=== PATIENT | male | born 1955 | race African-American/Black ===

== ENCOUNTER 2019-05-20 13:24 | Emergency (ER) | payer OTHER ==
[2019-05-20 13:31] VITALS: BP 124/79; PULSE 75; TEMP 98; BMI 29.1
[2019-05-20] MEDS ORDERED: IBUPROFEN 600 MG TABLET (FP) PO ONE ×2 (14:17→14:23)
[2019-05-20] MEDS ORDERED: PSEUDOEPHEDRINE HCL 30 MG TABLET PO ONE (14:22)
--- NOTE | 2019-05-20 14:22 | PDOC ---
History of Present Illness - General Chief Complaint: Cold Symptoms Stated Complaint: COLD SYMPTOMS Time Seen by Provider: 05/20/19 13:40 History Source: Patient Exam Limitations: No Limitations Past History - Travel Traveled outside of the country in the last 30 days: No Close contact w/someone who was outside of country & ill: No - Past Medical History Allergies/Adverse Reactions: Allergies Allergy/AdvReac Type Severity Reaction Status Date / Time Penicillins Allergy Verified 05/20/19 13:31 Home Medications: Ambulatory Orders Fluticasone Prop 0.05% Nasal [Flonase -] 1 - 2 spray NS DAILY #1 spray.pump 08/29 Pseudoephedrine HCl [Sudafed] 30 mg PO Q8H #30 tablet 05/20/19 COPD: No - Suicide/Smoking/Psychosocial Hx Smoking History: Unknown if ever smoked Have you smoked in the past 12 months: No Information on smoking cessation initiated: No Hx Alcohol Use: No Drug/Substance Use Hx: No Review of Systems - Review of Systems Able to Perform ROS?: Yes Comments:: 05/20/19 14:22 CONSTITUTIONAL: Absent: Fever, chills, body aches diaphoresis, generalized weakness, malaise, loss of appetite HEENT: Present: rhinorrhea, nasal congestion Absent: throat pain, difficulty swallowing , mouth swelling, ear pain, eye pain, visual Changes CARDIOVASCULAR: Absent: chest pain, loss of consciousness, palpitations, irregular heart rate, peripheral edema RESPIRATORY: Present: Cough Absent: shortness of breath, dyspnea with exertion, orthopnea, wheezing, stridor, hemoptysis GASTROINTESTINAL: Absent: abdominal pain, abdominal distension, nausea, vomiting, diarrhea, constipation, melena, hematochezia SKIN: Absent: rash, itching, pallor NEUROLOGIC: Present: headache Absent: focal weakness or paresthesias, dizziness, unsteady gait, seizure, mental status changes, bladder or bowel incontinence Is the patient limited Portuguese proficient: No *Physical Exam - Vital Signs Last Vital Signs Temp Pulse Resp BP Pulse Ox 98.0 F 75 16 124/79 100 05/20/19 13:29 05/20/19 13:29 05/20/19 13:29 05/20/19 13:29 05/20/19 13:29 - Physical Exam Comments: 05/20/19 14:23 GENERAL: Well developed, well nourished. Awake and alert. No acute distress. HEENT: Normocephalic, atraumatic. PERRLA, EOMI. No conjunctival pallor. Sclera are non- icteric. Moist mucous membranes. Oropharynx is clear. Injected nares b/l. NECK: Supple. Full ROM. No JVD. Carotid pulses 2+ and symmetric, without bruits. No thyromegaly. No lymphadenopathy. CARDIOVASCULAR: Regular rate and rhythm. No murmurs, rubs, or gallops. Distal pulses are 2+ and symmetric. PULMONARY: No evidence of respiratory distress. Lungs clear to auscultation bilaterally. No wheezing, rales or rhonchi. ABDOMINAL: Soft. Non-tender. Non-distended. No rebound or guarding. No organomegaly. Normoactive bowel sounds. MUSCULOSKELETAL Normal range of motion at all joints. No bony deformities or tenderness. No CVA tenderness. EXTREMITIES: No cyanosis. No clubbing. No edema. No calf tenderness. SKIN: Warm and dry. Normal capillary refill. No rashes. No jaundice. NEUROLOGICAL: Alert, awake, appropriate. Cranial nerves 2-12 intact. No deficits to light touch and temperature in face, upper extremities and lower extremities. No motor deficits in the in face, upper extremities and lower extremities. Normoreflexic in the upper and lower extremities. Normal speech. Toes are down- going bilaterally. Gait is normal without ataxia. PSYCHIATRIC: Cooperative. Good eye contact. Appropriate mood and affect. Medical Decision Making - Medical Decision Making 05/20/19 14:27 the patient is a 64-year-old male who presented to the ER with 3 days of cold- like symptoms. He states that he has a dry cough and congestion which keep him up at night. He has tried taking Advil and NyQuil with minimal relief of the symptoms. Denies fevers, sore throat, earache, chills, nausea, vomiting and diarrhea. A/P: Upper respiratory infection On exam patient with injected nares bilaterally, supports patient's congestion Exam is otherwise unremarkable. Most likely an upper respiratory illness We will discharge home with some dramatic relief such as Sudafed and Advil I discussed the physical exam findings, ancillary test results and final diagnoses with the patient. I answered all of the patient's questions. The patient was satisfied with the care received and felt comfortable with the discharge plan and treatment plan. The Patient agrees to follow up with the primary care physician/specialist within 24-72 hours. Return precautions were given. *DC/Admit/Observation/Transfer Diagnosis at time of Disposition: Upper respiratory disease - Discharge Dispostion Disposition: HOME Condition at time of disposition: Stable Decision to Admit order: No - Referrals Referrals: Sy Khan MD [Staff Physician] - - Patient Instructions Printed Discharge Instructions: DI for Viral Upper Respiratory Infection -- Adult Additional Instructions: You have an upper respiratory infection, or the common cold. Take the Naproxen as directed on the bottle You may take the Sudafed every 8 hours as directed. Use the Flonase twice a day 1 spray in each nare to help with her congestion. Drink plenty of fluids. Cough drops and warm tea may help your symptoms as well. Please follow up with her primary care doctor this week. Return to the emergency department if you have difficulty breathing, shortness of breath, worsening pain, nausea, vomiting or if you have any changes in your symptoms - Post Discharge Activity Forms/Work/School Notes: Back to Work
[2019-05-20] MEDS ORDERED: PSEUDOEPHEDRINE HCL 60 MG TABLET ONE (14:24)
== END 2019-05-20 14:58 | disposition home or self-care (01) ==
LOC: EDBD → JERFT 13:24
DX: J06.9 Acute upper respiratory infection, unspecified (principal)
CPT/HCPCS: 99281-25

== ENCOUNTER 2019-08-13 14:41 | Emergency (ER) | payer OTHER ==
[2019-08-13 14:47] VITALS: BP 139/88; PULSE 82; TEMP 98.4; BMI 60.7
--- NOTE | 2019-08-13 14:49 | PDOC ---
Rapid Medical Evaluation Chief Complaint: Pain Time Seen by Provider: 08/13/19 14:43 Medical Evaluation: Allergies Allergy/AdvReac Type Severity Reaction Status Date / Time Penicillins Allergy Verified 05/20/19 13:31 08/13/19 14:44 I have performed a brief in-person evaluation of this patient. The patient presents with a chief complaint of: right ankle pain , atraumic Pertinent physical exam findings: tender soft mass to distal medial right ankle. No swelling to ext or erythema I have ordered the following: xray right ankle The patient will proceed to the ED for further evaluation. 08/13/19 14:48 Discharge Disposition - Diagnosis Ankle pain Qualifiers: Chronicity: acute Laterality: right Qualified Code(s): M25.571 - Pain in right ankle and joints of right foot - Discharge Dispostion Condition at time of disposition: Stable - Referrals - Patient Instructions - Post Discharge Activity
[2019-08-13] MEDS ORDERED: IBUPROFEN 600 MG TABLET (FP) PO ONE ×2 (15:22→15:23)
--- NOTE | 2019-08-13 15:27 | PDOC ---
History of Present Illness - General Chief Complaint: Pain, Acute Stated Complaint: RT LEG PAIN Time Seen by Provider: 08/13/19 14:43 History Source: Patient Exam Limitations: No Limitations - History of Present Illness Initial Comments: 08/13/19 16:01 Chief complaint: Ankle pain Patient 64-year-old male with no significant medical problems who states he developed right inner ankle pain 2 days ago. No fever, no injury. Patient is ambulatory. GENERAL/CONSTITUTIONAL: No fever, weakness. dizziness HEAD, EYES, EARS, NOSE AND THROAT: No change in vision. No ear pain or discharge. No sore throat. CARDIOVASCULAR: No chest pain RESPIRATORY: No shortness of breath or cough GASTROINTESTINAL: No pain, nausea, vomiting, diarrhea or constipation GENITOURINARY: No dysuria MUSCULOSKELETAL: No neck or back pain SKIN: No rash, + lump NEUROLOGIC: No headache, vertigo, loss of consciousness, or loss of sensation. GENERAL: The patient is awake, alert, and fully oriented, in no acute distress. HEAD: Normal with no signs of trauma. EYES: Pupils equal, round and reactive to light, sclera anicteric, conjunctiva clear. ENT: pharynx: no erythema, no exudate, uvula midline NECK: supple CHEST: clear, nontender, rr ABD: soft, nontender BACK: no tenderness or signs of injury EXTREMITIES: Right lower extremity with small palpable tender area above the medial malleolus, consistent with varicose vein, no redness or signs of thrombophlebitis or infection. Full range of motion, neurovascular intact. No calf tenderness or swelling. Rest of extremities, normal range of motion, no edema. NEUROLOGICAL: Normal speech, normal gait. SKIN: Warm, Dry Past History - Past Medical History Allergies/Adverse Reactions: Allergies Allergy/AdvReac Type Severity Reaction Status Date / Time Penicillins Allergy Verified 05/20/19 13:31 Home Medications: Ambulatory Orders Fluticasone Prop 0.05% Nasal [Flonase -] 1 - 2 spray NS DAILY #1 spray.pump 08/29 Pseudoephedrine HCl [Sudafed] 30 mg PO Q8H #30 tablet 05/20/19 COPD: No - Immunization History Immunization Up to Date: No - Psycho Social/Smoking Cessation Hx Smoking History: Never smoked Have you smoked in the past 12 months: No Information on smoking cessation initiated: No Hx Alcohol Use: No Drug/Substance Use Hx: No *Physical Exam - Vital Signs Last Vital Signs Temp Pulse Resp BP Pulse Ox 98.4 F 82 16 139/88 96 08/13/19 14:44 08/13/19 14:44 08/13/19 14:44 08/13/19 14:44 08/13/19 14:44 ED Treatment Course - Medications Given in the ED: ED Medications Discontinued Medications Generic Name Dose Route Start Last Admin Trade Name Meryl PRN Reason Stop Dose Admin Ibuprofen 600 mg 08/13/19 15:23 08/13/19 15:25 Motrin - PO 08/13/19 15:24 600 mg ONCE ONE Administration Medical Decision Making - Medical Decision Making 08/13/19 16:04 64-year-old healthy male with 2 days of right medial ankle pain and tenderness, with palpable area consistent with varicose vein. No signs of infection, no calf tenderness. No indication for ultrasound. Patient had x-ray ordered from triage. X-ray does not show any acute issue Discussed issues, findings, results, applicable medications and treatments and follow-up. All these were understood and all questions were answered Discharge - Discharge Information Problems reviewed: Yes Clinical Impression/Diagnosis: Ankle pain Qualifiers: Chronicity: acute Laterality: right Qualified Code(s): M25.571 - Pain in right ankle and joints of right foot Condition: Stable Disposition: HOME - Admission No - Additional Discharge Information Prescription Drug Monitoring Program (I-STOP) results: I-STOP not reviewed - Follow up/Referral Referrals: Stanley Griffith MD [Primary Care Provider] - Alfonso Montalvo DO [Staff Physician] - - Patient Discharge Instructions Patient Printed Discharge Instructions: Varicose Veins Additional Instructions: Wear compression stockings, take Motrin 600 mg every 6 hours for pain if needed. Return to the ER if redness, fever, worsening swelling or other concerns. Follow-up with the vascular surgeon - Post Discharge Activity
== END 2019-08-13 15:30 | disposition home or self-care (01) ==
LOC: JERFT 14:41
DX: M25.571 Pain in right ankle and joints of right foot (principal); I83.91 Asymptomatic varicose veins of right lower extremity
CPT/HCPCS: 73610-TC-RT-FY; 99282-25

== ENCOUNTER 2019-09-14 12:12 | Emergency (ER) | payer OTHER ==
[2019-09-14 12:29] VITALS: TEMP 98.2; BMI 27.1
--- NOTE | 2019-09-14 12:44 | PDOC ---
History of Present Illness - General Chief Complaint: Hemoptysis Stated Complaint: SPITTING UP BLOOD Time Seen by Provider: 09/14/19 12:43 - History of Present Illness Initial Comments: 09/14/19 13:12 Pt is a 64 y/o M w/ no significant past medical history who presents to our Emergency Department due to cough. Pt endorses that he began to experience a soar throat this past . On Saturday, pt noticed his cough was productive of blood tinged sputum. Pt endorses he has felt rather weak and has had decreased energy as well. He has not received the flu vaccine. Denies fever or night sweats. Denies any TB exposure or smoking history. He has used Excedrin during this time period as he has also had a headache. Excedrin has provided some relief of his headache. PMh Denies Social Hs- Denies alcohol or tovacco use. SurgHx- b/l knee arthroscopy FH- Father NC, Mother NC. Sisters DM and HTN Allergies-Penicillin Past History - Past Medical History Allergies/Adverse Reactions: Allergies Allergy/AdvReac Type Severity Reaction Status Date / Time Penicillins Allergy Verified 09/14/19 12:26 Home Medications: Ambulatory Orders Fluticasone Prop 0.05% Nasal [Flonase -] 1 - 2 spray NS DAILY #1 spray.pump 08/29 Pseudoephedrine HCl [Sudafed] 30 mg PO Q8H #30 tablet 05/20/19 Azithromycin 500 mg PO DAILY 5 Days #6 tablet 09/14/19 COPD: No - Immunization History Immunization Up to Date: No - Psycho Social/Smoking Cessation Hx Smoking History: Never smoked Have you smoked in the past 12 months: No Hx Alcohol Use: No Drug/Substance Use Hx: No Review of Systems - Review of Systems Constitutional: Yes: Malaise, Weakness. No: Chills, Fever, Night Sweats HEENTM: Yes: Nose Congestion, Throat Pain. No: Throat Swelling Respiratory: Yes: Cough, Productive cough. No: Shortness of Breath, Wheezing Cardiac (ROS): No: Chest Pain, Irregular Heart Rate, Palpitations ABD/GI: No: Constipated, Diarrhea Neurological: Yes: Headache. No: Numbness, Paresthesia *Physical Exam - Vital Signs Last Vital Signs Temp Pulse Resp BP Pulse Ox 98.2 F 83 18 132/86 99 09/14/19 12:26 09/14/19 12:26 09/14/19 12:26 09/14/19 12:26 09/14/19 12:26 - Physical Exam General Appearance: Yes: Appropriately Dressed. No: Apparent Distress HEENT: positive: Normal ENT Inspection, TMs Normal, Pharynx Normal, Muffled/ Hoarse voice, Nasal Congestion. negative: Pale Conjunctivae, Photophobia, Scleral Icterus (R), Scleral Icterus (L), Pharyngeal Erythema, Tonsillar Exudate , Tonsillar Erythema, TM Bulging, TM Dull, TM Erythema, Lesions, Arriaga, Excessive drooling, Thrush Neck: negative: Lymphadenopathy (R), Lymphadenopathy (L), Tender lateral, Tender midline Respiratory/Chest: positive: Lungs Clear, Normal Breath Sounds. negative: Respiratory Distress, Accessory Muscle Use, Decreased Breath Sounds, Crackles, Rales, Rhonchi, Stridor, Wheezing, Plerual Rub Cardiovascular: positive: Regular Rate, S1, S2 Gastrointestinal/Abdominal: negative: Distended, Guarding, Rebound, Tenderness Extremity: positive: Normal Inspection. negative: Pedal Edema, Swelling Integumentary: positive: Normal Color Neurologic: positive: bar pilot II-XII NML intact, Fully Oriented ED Treatment Course - LABORATORY CBC & Chemistry Diagram: 09/14/19 13:23 09/14/19 13:23 Medical Decision Making - Medical Decision Making Pt is a 64 y/o M w/ no significant past medical history who presents to our Emergency Department due to cough. Pt endorses that he began to experience a soar throat this past . On Saturday, pt noticed his cough was productive of blood tinged sputum. Pt endorses he has felt rather weak and has had decreased energy as well. He has not received the flu vaccine. Denies fever or night sweats. Denies any TB exposure or smoking history. He has used Excedrin during this time period as he has also had a headache. Excedrin has provided some relief of his headache. 09/14/19 13:11 DDx includes but not limited to URI, Pneumonia, Bronchitis, TB Will order CXR, CMP, CBC w/ diff, Tylenol, and Robitussin l 09/14/19 14:39 CXR No acute pathology, CPA clear no infiltrates or congestive changes. 09/14/19 15:14 Cr 1.6. Pt states he regularly visits a Sales [employer]- Dr Lee. Will call office now to ascertain what his baseline creatinine is. No elevated WBC on CBC. 09/14/19 15:24 Spoke with Sales Marketing, Dr Lee. Endorses that patient's last Creatinine was 1.4 in January of this year. Pt has an appointment in September to see director of recruitment. Pt currently receiving second liter of normal saline. Once NS finished, will dc patient with z-los for productive cough and give pcp and nephrology referral . Discharge - Discharge Information Problems reviewed: Yes Clinical Impression/Diagnosis: Upper respiratory disease Condition: Improved - Admission No - Additional Discharge Information Prescriptions: Azithromycin 500 mg PO DAILY 5 Days #6 tablet - Follow up/Referral Referrals: Brandon Senior [Primary Care Provider] - Ubaldo Lee [Other] - Patient Discharge Instructions Patient Printed Discharge Instructions: What Can I Do About Kidney Disease?, DI for Hemoptysis Additional Instructions: You were treated in our Emergency Department for a cough. You will be sent home on oral antibiotics. Please take these as prescribed. Please follow up with your Sales Marketing, Dr Lee. You have an appointment scheduled for next week. Please follow up with your Primary Care Doctor this week. Please return to the Emergency Room immediately if you begin to experience fever , chills, nausea, vomiting, or any other worsening symptoms. - Post Discharge Activity
[2019-09-14] MEDS ORDERED: guaiFENesin/D-METHORPHAN HB 10 ML UNIT-DOSE CUPS PO ONE (13:11)
[2019-09-14] MEDS ORDERED: ACETAMINOPHEN 1000 MG/100 ML VIAL (NON FORMULARY) IVPB ONE (13:11)
[2019-09-14] MEDS ORDERED: ACETAMINOPHEN 500 MG TABLET (FP) PO ONE (13:19)
[2019-09-14] MEDS ORDERED: ACETAMINOPHEN INJECTION 100 ML IVPB ONE (13:24)
[2019-09-14] MEDS ORDERED: guaiFENesin 200 MG/10 ML 10 ML UNIT-DOSE CUPS ONE (13:24)
[2019-09-14] MEDS ORDERED: SODIUM CHLORIDE 1,000 ML IV ONE ×3 (13:25→15:02)
--- NOTE | 2019-09-14 13:53 | PDOC ---
Attending Attestation - Resident Resident Name: Benji Roach - ED Attending Attestation I have performed the following: I have examined & evaluated the patient, The case was reviewed & discussed with the resident, I agree w/resident's findings & plan, Exceptions are as noted - HPI HPI: 09/14/19 13:48 64yo male with pmhx of bph on flomax presents for eval of slight cough since last and then 3 episodes of hemoptysis on saturday. Pt states he felt a sore throat and body aches starting last assoc with a dry cough. States on saturday he felt more phlegm and when he coughed he brought up about a thumbnail sized phlegm with brb. Pt states he had 3 episodes on saturday. Denies bleeding yesterday. Denies bloody phlegm or sputum today. States sputum today is clear. Denies f/c. No wt loss. No smoking hx. Denies cp/sob. Denies abd pain. No n/v/d. No bleeding from nares, gums. NO hx of bleeding problems in the past. No leg swelling, no calf cramping, no pleuritic cp, no pe risk factors. No other complaints. Pt denies any recent travel. No night sweats. - Physicial Exam PE: 09/14/19 13:51 Gen: aaox3, nad heent: Nares clear, posterior pharynx clear- no exudates or erythema, no stigmata of bleeding, mmm neck: supple heart: +s1s2 reg lungs: cta b/l, no resp distress abd: soft, nt/nd +bs ext: no c/c/e, no calf ttp, ambulates with a steady gait - Medical Decision Making 09/14/19 13:52 a/p: 64yo male with 3 episodes of blood tinged sputum on saturday after having an URI since . -pt without active bleeding today -no PE risk factors -No TB risk factors -no smoking hx -will send labs, cxr -pt with clear sputum in the ER currently -will monitor and reassess -ivf hydration, tylenol 09/14/19 14:03 cxr 09/14/19 14:28 no elevated wbc 09/14/19 15:06 elevated h/h and cr - suspect dehydration will hydrate and repeat 09/14/19 15:24 at baseline Cr per nephrology - stable for dc to home will send home with joi for the cough
[2019-09-14 14:13] LABS: BASO % 0.4 % (0-2.0); HEMATOCRIT 50.6 % (35.4-49); HEMOGLOBIN 17.2 GM/dL (11.7-16.9); LYMPH % 20.9 % (8-40); MCH 31.5 pg (25.7-33.7); MEAN CELL VOLUME 92.5 fl (80-96); MEAN PLT VOLUME 7.9 fl (7.5-11.1); MONO % 8.2 % (3.8-10.2); NEUT % 67.5 % (42.8-82.8); PLATELET COUNT 171 K/MM3 (134-434); RBC 5.47 M/mm3 (4.00-5.60); RDW 13.4 % (11.9-15.9); WHITE BLOOD COUNT 6.2 K/mm3 (4.0-10.0)
[2019-09-14 14:39] LABS: ALBUMIN 4.1 g/dl (3.4-5.0); BILIRUBIN,TOTAL 0.4 mg/dL (0.2-1); BLOOD UREA NITROGEN 12.3 mg/dL (7-18); CREATININE 1.6 mg/dL (0.55-1.3); POTASSIUM 4.7 mmol/L (3.5-5.1); TOT PROT 7.8 g/dl (6.4-8.2)
[2019-09-14] MEDS ORDERED: SODIUM CHLORIDE 1,000 ML IV SCH (15:15)
--- NOTE | 2019-09-14 15:49 | EKG ---
Test Reason : Blood Pressure : / mmHG Vent. Rate : 062 BPM Atrial Rate : 062 BPM P-R Int : 142 ms QRS Dur : 082 ms QT Int : 426 ms P-R-T Axes : 072 036 063 degrees QTc Int : 432 ms NORMAL SINUS RHYTHM NORMAL ECG NO PREVIOUS ECGS AVAILABLE Confirmed by MARI COVINGTON MD ([id number]) on 09/14/2019 3:48:46 PM Referred By: Confirmed By:MARI COVINGTON MD
[2019-09-14 18:01] VITALS: BP 149/82; PULSE 55
== END 2019-09-14 16:34 | disposition home or self-care (01) ==
LOC: JER 12:12
PROC: 3E0337Z Introduction of Electrolytic and Water Balance Substance into Peripheral Vein, Percutaneous Approach (ICD-10-PCS; principal; 2019-09-14)
PROC: 3E033NZ Introduction of Analgesics, Hypnotics, Sedatives into Peripheral Vein, Percutaneous Approach (ICD-10-PCS; 2019-09-14)
DX: J39.9 Disease of upper respiratory tract, unspecified (principal); Z88.0 Allergy status to penicillin
CPT/HCPCS: 36415; 71046-TC-FY; 80053; 83880; 85025; 93005; 93010; 99283-25; J0131; J7030

== ENCOUNTER 2021-10-25 13:29 | Emergency (ER) | payer OTHER ==
[2021-10-25 13:48] VITALS: BP 145/80; PULSE 73; TEMP 98.5; BMI 28.3
[2021-10-25] MEDS ORDERED: SODIUM CHLORIDE 1,000 ML IV STA (14:52)
[2021-10-25] MEDS ORDERED: DEXAMETHASONE LIQUID 0.5 MG/5 ML PO ONE (14:52)
[2021-10-25] MEDS ORDERED: ALBUTEROL SO4 2.5/IPRATROPIUM 0.5 INH SOL 3 ML VIAL.NEB. NEB ONE ×3 (14:52→15:47)
[2021-10-25] MEDS ORDERED: AZITHROMYCIN IVPB 500 MG in DEXTROSE 5%-WATER - 250 ML IVPB ONE (14:53)
[2021-10-25] MEDS ORDERED: AZITHROMYCIN IVPB 500 MG/250 ML BAG IVPB ONE (15:19)
[2021-10-25] MEDS ORDERED: DEXAMETHASONE SOD PHOSPHATE 10 MG/1 ML VIAL ONE (15:19)
[2021-10-25 16:00] LABS: BASO % 0.7 % (0-2.0); EOS % 3.8 % (0-4.5); HEMATOCRIT 44.7 % (35.4-49); HEMOGLOBIN 15.1 GM/dL (11.7-16.9); MCH 30.3 pg (25.7-33.7); MCHC 33.7 g/dl (32.0-35.9); MEAN PLT VOLUME 8.2 fl (7.5-11.1); MONO % 9.1 % (3.8-10.2); NEUT % 65.4 % (42.8-82.8); PLATELET COUNT 185 10^3/uL (134-434); RBC 4.97 M/mm3 (4.00-5.60); RDW 13.6 % (11.9-15.9); WHITE BLOOD COUNT 8.2 K/mm3 (4.0-10.0)
[2021-10-25 16:21] LABS: CALCIUM 8.5 mg/dL (8.5-10.1)
[2021-10-25 16:22] LABS: ALBUMIN 3.4 g/dl (3.4-5.0); BLOOD UREA NITROGEN 12.3 mg/dL (7-18)
[2021-10-25 16:25] LABS: CREATININE 1.6 mg/dL (0.55-1.3)
[2021-10-25 16:27] LABS: BILIRUBIN,TOTAL 0.7 mg/dL (0.2-1)
== END 2021-10-25 18:14 | disposition home or self-care (01) ==
LOC: JER 13:29
PROC: 3E0F7GC Introduction of Other Therapeutic Substance into Respiratory Tract, Via Natural or Artificial Opening (ICD-10-PCS; principal; 2021-10-25)
PROC: 3E03329 Introduction of Other Anti-infective into Peripheral Vein, Percutaneous Approach (ICD-10-PCS; 2021-10-25)
PROC: 3E0337Z Introduction of Electrolytic and Water Balance Substance into Peripheral Vein, Percutaneous Approach (ICD-10-PCS; 2021-10-25)
DX: J18.9 Pneumonia, unspecified organism (principal)
CPT/HCPCS: 36415; 71046-TC-FY; 80053; 85025; 87804; 99285-25; C9803; U0003; U0005

== ENCOUNTER 2021-11-13 13:43 | Emergency (ER) | payer OTHER ==
[2021-11-13 14:16] VITALS: BP 137/90; PULSE 93; TEMP 98.9; BMI 26.8
[2021-11-14 14:12] LABS: SARS-CoV-2 NAA Detected (Not Detected)
== END 2021-11-13 16:10 | disposition home or self-care (01) ==
LOC: JER 13:43
DX: U07.1 COVID-19 (principal)
CPT/HCPCS: 71045-TC-FY; 87804; 99284-25; C9803; U0003; U0005

== ENCOUNTER 2022-07-18 04:15 | Emergency (ER) | payer OTHER ==
[2022-07-18 04:28] VITALS: BP 168/103; PULSE 77; RESP 18; TEMP 98.6; BMI 29.0
[2022-07-18] MEDS ORDERED: DEXAMETHASONE SOD PHOSPHATE 10 MG/1 ML VIAL IVPUSH ONE (04:50)
[2022-07-18] MEDS ORDERED: FAMOTIDINE 10 MG TABLET PO ONE (04:51)
[2022-07-18] MEDS ORDERED: DEXAMETHASONE SOD PHOSPHATE 10 MG/1 ML VIAL IM ONE (04:55)
[2022-07-18] MEDS ORDERED: DEXAMETHASONE SOD PHOSPHATE 10 MG/1 ML VIAL ONE (05:00)
[2022-07-18] MEDS ORDERED: FAMOTIDINE 20 MG TABLET ONE (05:00)
[2022-07-18] MEDS ORDERED: FAMOTIDINE 20 MG TABLET PO ONE (05:01)
== END 2022-07-18 05:16 | disposition home or self-care (01) ==
LOC: JER 04:15
PROC: 3E033NZ Introduction of Analgesics, Hypnotics, Sedatives into Peripheral Vein, Percutaneous Approach (ICD-10-PCS; principal; 2022-07-18)
PROC: 3E023NZ Introduction of Analgesics, Hypnotics, Sedatives into Muscle, Percutaneous Approach (ICD-10-PCS; 2022-07-18)
DX: T78.40XA Allergy, unspecified, initial encounter (principal); L50.9 Urticaria, unspecified
CPT/HCPCS: 99283-25; J1100

== ENCOUNTER 2022-11-21 13:53 | Emergency (ER) | payer OTHER ==
[2022-11-21] MEDS ORDERED: AZITHROMYCIN 500 MG TABLET PO ONE (14:15)
[2022-11-21] MEDS ORDERED: IBUPROFEN 600 MG TABLET (FP) PO ONE (14:15)
[2022-11-21 14:19] VITALS: RESP 20; TEMP 98.5; BMI 29.0
[2022-11-21 17:43] VITALS: BP 140/69; PULSE 76
== END 2022-11-21 17:43 | disposition home or self-care (01) ==
LOC: JER 13:53
DX: U07.1 COVID-19 (principal)
CPT/HCPCS: 0241U-QW; 71046-TC-FY; 99284-25

== ENCOUNTER 2023-02-28 07:27 | Emergency (ER) | payer OTHER ==
[2023-02-28] MEDS ORDERED: diphenhydrAMINE HCL 50 MG CAPSULE PO ONE (08:06)
[2023-02-28] MEDS ORDERED: DEXAMETHASONE SOD PHOSPHATE 10 MG/1 ML VIAL IM ONE (08:06)
[2023-02-28 08:09] VITALS: BP 146/80; PULSE 81; RESP 17; TEMP 97.8; BMI 30.9
[2023-02-28] MEDS ORDERED: DEXAMETHASONE SOD PHOSPHATE 10 MG/1 ML VIAL ONE (08:10)
[2023-02-28] MEDS ORDERED: diphenhydrAMINE HCL 25 MG CAPSULE (FP) PO ONE (08:10)
== END 2023-02-28 09:09 | disposition home or self-care (01) ==
LOC: JERFT 07:27 → JER 07:27 → JERFT 09:09
PROC: 3E023GC Introduction of Other Therapeutic Substance into Muscle, Percutaneous Approach (ICD-10-PCS; principal; 2023-02-28)
DX: L50.0 Allergic urticaria (principal)
CPT/HCPCS: 99284-25; J1100

== ENCOUNTER 2023-03-02 16:12 | Emergency (ER) | payer OTHER ==
[2023-03-02 16:20] VITALS: BP 124/73; PULSE 86; RESP 18; TEMP 98.2; BMI 29.8
[2023-03-02] MEDS ORDERED: FAMOTIDINE 20 MG/50 ML IVPB 20 MG/50 ML MG IVPB ONE ×2 (17:43→18:28)
[2023-03-02] MEDS ORDERED: METOCLOPRAMIDE HCL INJECTION 10 MG/2 ML VIAL IVPB ONE (17:44)
[2023-03-02] MEDS ORDERED: methylPREDNISolone NA SUCC 125 MG/2 ML VIAL IVPB ONE (17:45)
[2023-03-02] MEDS ORDERED: ACETAMINOPHEN 1000 MG/100 ML BAG IVPB ONE (17:45)
[2023-03-02] MEDS ORDERED: SODIUM CHLORIDE 0.9% 500 ML INFUS.BAG IV ONE (17:54)
[2023-03-02] MEDS ORDERED: METOCLOPRAMIDE HCL INJECTION 10 MG/2 ML VIAL ONE (18:27)
[2023-03-02] MEDS ORDERED: ACETAMINOPHEN INJECTION 100 ML IVPB ONE (18:27)
[2023-03-02] MEDS ORDERED: methylPREDNISolone NA SUCC 125 MG/2 ML VIAL ONE (18:27)
== END 2023-03-02 19:51 | disposition home or self-care (01) ==
LOC: JER 16:12
PROC: 3E033GC Introduction of Other Therapeutic Substance into Peripheral Vein, Percutaneous Approach (ICD-10-PCS; principal; 2023-03-02)
PROC: 3E033GC Introduction of Other Therapeutic Substance into Peripheral Vein, Percutaneous Approach (ICD-10-PCS; 2023-03-02)
PROC: 3E033GC Introduction of Other Therapeutic Substance into Peripheral Vein, Percutaneous Approach (ICD-10-PCS; 2023-03-02)
PROC: 3E033GC Introduction of Other Therapeutic Substance into Peripheral Vein, Percutaneous Approach (ICD-10-PCS; 2023-03-02)
PROC: 3E033GC Introduction of Other Therapeutic Substance into Peripheral Vein, Percutaneous Approach (ICD-10-PCS; 2023-03-02)
DX: R21 Rash and other nonspecific skin eruption (principal); T78.40XA Allergy, unspecified, initial encounter; R51.9 Headache, unspecified
CPT/HCPCS: 99284-25

== ENCOUNTER 2023-10-14 10:51 | Emergency (ER) | payer OTHER ==
[2023-10-14 11:14] VITALS: BP 146/84; PULSE 64; RESP 17; TEMP 98.2; BMI 29.2
[2023-10-14] MEDS ORDERED: ALBUTEROL SO4 2.5/IPRATROPIUM 0.5 INH SOL 3 ML VIAL.NEB. NEB ONE ×2 (13:04→13:05)
[2023-10-14 13:35] LABS: THROAT:GRP A STREP NOT DETECTED (NOTDETECTED)
== END 2023-10-14 14:58 | disposition home or self-care (01) ==
LOC: JERFT 10:51
PROC: 3E0F7GC Introduction of Other Therapeutic Substance into Respiratory Tract, Via Natural or Artificial Opening (ICD-10-PCS; principal; 2023-10-14)
DX: J21.0 Acute bronchiolitis due to respiratory syncytial virus (principal); R05.9 Cough, unspecified; R07.89 Other chest pain; R51.9 Headache, unspecified; R53.83 Other fatigue; Z20.822 Contact with and (suspected) exposure to COVID-19
CPT/HCPCS: 0241U-QW; 87651; 99283-25

== ENCOUNTER 2023-10-17 11:14 | Emergency (ER) | payer OTHER ==
[2023-10-17 11:26] VITALS: BP 144/77; PULSE 60; RESP 18; TEMP 98.4; BMI 29.2
== END 2023-10-17 12:16 | disposition home or self-care (01) ==
LOC: JERFT 11:14
DX: R51.9 Headache, unspecified (principal); J02.9 Acute pharyngitis, unspecified; R05.9 Cough, unspecified; M79.10 Myalgia, unspecified site; J21.0 Acute bronchiolitis due to respiratory syncytial virus
CPT/HCPCS: 99283-25

== ENCOUNTER 2023-11-27 16:55 | Observation (INO) | payer OTHER ==
[2023-11-27 17:19] VITALS: BMI 30.5
[2023-11-27] MEDS ORDERED: ACETAMINOPHEN 1000 MG/100 ML BAG IVPB ONE (18:00)
[2023-11-27] MEDS ORDERED: LIDOCAINE 5% TOPICAL PATCH TP ONE (18:00)
[2023-11-27] MEDS ORDERED: ACETAMINOPHEN INJECTION 100 ML IVPB ONE (18:13)
[2023-11-27 19:00] LABS: BASO % 0.4 % (0-2.0); EOS % 5.8 % (0-4.5); HEMATOCRIT 43.8 % (35.4-49); HEMOGLOBIN 14.4 GM/dL (11.7-16.9); LYMPH % 32.7 % (8-40); MCHC 32.9 g/dl (32.0-35.9); MEAN CELL VOLUME 88.3 fl (80-96); MEAN PLT VOLUME 7.8 fl (7.5-11.1); MONO % 9.6 % (3.8-10.2); NEUT % 51.5 % (42.8-82.8); PLATELET COUNT 229 10^3/uL (134-434); RBC 4.96 M/mm3 (4.00-5.60); RDW 14.2 % (11.9-15.9); WHITE BLOOD COUNT 6.1 K/mm3 (4.0-10.0)
[2023-11-27 19:12] LABS: INR 1.31 (0.83-1.09); PROTHROMBIN TIME (PATIENT) 15.2 SEC (9.7-13.0)
[2023-11-27 19:15] LABS: ACTIVATED PTT 32.8 SECONDS (25.2-36.5)
[2023-11-27 19:17] LABS: POTASSIUM 4.8 mmol/L (3.5-5.1)
[2023-11-27 19:22] LABS: ALBUMIN 3.5 g/dl (3.4-5.0); BLOOD UREA NITROGEN 16.1 mg/dL (7-18); CALCIUM 8.7 mg/dL (8.5-10.1); MAGNESIUM 2.3 mg/dL (1.8-2.4)
[2023-11-27 19:25] LABS: CREATININE 1.6 mg/dL (0.55-1.3)
[2023-11-27 19:26] LABS: TOT PROT 6.6 g/dl (6.4-8.2)
[2023-11-27 19:27] LABS: BILIRUBIN,TOTAL 0.4 mg/dL (0.2-1)
[2023-11-27] MEDS ORDERED: LIDOCAINE 4% PATCH TP ONE (20:13)
[2023-11-27] MEDS ORDERED: LIDOCAINE PATCH REMOVAL MC ONE (22:00)
[2023-11-27] MEDS ORDERED: SODIUM CHLORIDE 1,000 ML IV SCH (23:45)
[2023-11-28] MEDS ORDERED: ACETAMINOPHEN 1000 MG/100 ML BAG IVPB PRN (02:05)
[2023-11-28 06:24] VITALS: TEMP 97.8
[2023-11-28 06:58] LABS: BASO % 0.3 % (0-2.0); EOS % 5.7 % (0-4.5); HEMOGLOBIN 14.5 GM/dL (11.7-16.9); LYMPH % 26.9 % (8-40); MCH 29.2 pg (25.7-33.7); MCHC 32.9 g/dl (32.0-35.9); MEAN CELL VOLUME 88.8 fl (80-96); MEAN PLT VOLUME 7.8 fl (7.5-11.1); MONO % 9.1 % (3.8-10.2); PLATELET COUNT 214 10^3/uL (134-434); RBC 4.96 M/mm3 (4.00-5.60); RDW 14.1 % (11.9-15.9); WHITE BLOOD COUNT 5.3 K/mm3 (4.0-10.0)
[2023-11-28 07:05] LABS: ALBUMIN 3.4 g/dl (3.4-5.0); BLOOD UREA NITROGEN 16.4 mg/dL (7-18); CALCIUM 8.1 mg/dL (8.5-10.1)
[2023-11-28 07:06] LABS: MAGNESIUM 1.8 mg/dL (1.8-2.4)
[2023-11-28 07:08] LABS: CREATININE 1.4 mg/dL (0.55-1.3); PHOSPHOROUS 2.7 mg/dL (2.5-4.9)
[2023-11-28 07:10] LABS: BILIRUBIN,TOTAL 0.6 mg/dL (0.2-1); TOT PROT 6.3 g/dl (6.4-8.2)
[2023-11-28] MEDS ORDERED: LOSARTAN POTASSIUM 50 MG TABLET PO SCH (10:00)
[2023-11-28] MEDS ORDERED: CYANOCOBALAMIN 1,000 MCG TABLET (FP) PO SCH (10:00)
[2023-11-28] MEDS ORDERED: APIXABAN 5 MG TABLET PO SCH (10:00)
[2023-11-28] MEDS ORDERED: NIFEdipine E.R. 30 MG TABLET PO SCH (10:00)
[2023-11-28] MEDS ORDERED: CLOPIDOGREL BISULFATE 75 MG TABLET (FP) PO SCH (10:00)
[2023-11-28] MEDS ORDERED: LIDOCAINE 4% PATCH TP SCH (10:00)
[2023-11-28 10:10] VITALS: BP 129/78; PULSE 62; RESP 20
[2023-11-28] MEDS ORDERED: LIDOCAINE PATCH REMOVAL MC SCH (22:00)
[2023-11-29] MEDS ORDERED: COLCHICINE 0.6 MG TAB PO SCH (10:00)
== END 2023-11-28 17:11 | disposition home or self-care (01) ==
LOC: JER 16:55 → JERBED 18:45
PROVIDERS: ADMIT Internal Medicine; ATTEND Internal Medicine
PROC: 3E033NZ Introduction of Analgesics, Hypnotics, Sedatives into Peripheral Vein, Percutaneous Approach (ICD-10-PCS; principal; 2023-11-27)
PROC: 3E0337Z Introduction of Electrolytic and Water Balance Substance into Peripheral Vein, Percutaneous Approach (ICD-10-PCS; 2023-11-27)
DX: R07.81 Pleurodynia (principal); R00.1 Bradycardia, unspecified; I12.9 Hypertensive chronic kidney disease with stage 1 through stage 4 chronic kidney disease, or unspecified chronic kidney disease; N18.9 Chronic kidney disease, unspecified; I25.10 Atherosclerotic heart disease of native coronary artery without angina pectoris; Z95.5 Presence of coronary angioplasty implant and graft; R73.09 Other abnormal glucose; I89.0 Lymphedema, not elsewhere classified
CPT/HCPCS: 0241U-QW; 36415; 71046-TC-FY; 80053; 83735; 84100; 84443; 84484; 85025; 85610; 85730; 93005; 93010; 93306-TC; 99285-25; G0378

== ENCOUNTER 2024-04-14 09:29 | Emergency (ER) | payer OTHER ==
[2024-04-14 09:38] VITALS: BMI 28.5
[2024-04-14 11:40] LABS: BASO % 0.6 % (0-2.0); EOS % 6.1 % (0-4.5); HEMATOCRIT 43.1 % (35.4-49); HEMOGLOBIN 14.7 GM/dL (11.7-16.9); LYMPH % 18.3 % (8-40); MCH 30.4 pg (25.7-33.7); MEAN CELL VOLUME 89.3 fl (80-96); MEAN PLT VOLUME 7.4 fl (7.5-11.1); MONO % 11.8 % (3.8-10.2); NEUT % 63.2 % (42.8-82.8); PLATELET COUNT 236 10^3/uL (134-434); RBC 4.83 M/mm3 (4.00-5.60); RDW 14.2 % (11.9-15.9)
[2024-04-14] MEDS ORDERED: ACETAMINOPHEN INJECTION 100 ML IVPB ONE (11:41)
[2024-04-14] MEDS: ACETAMINOPHEN 1000 MG/100 ML BAG IVPB ONE (11:46)
[2024-04-14 11:50] LABS: INR 1.32 (0.83-1.09); PROTHROMBIN TIME (PATIENT) 15.1 SEC (9.7-13.0)
[2024-04-14 11:54] LABS: POTASSIUM 4.3 mmol/L (3.5-5.1)
[2024-04-14 11:56] LABS: CALCIUM 8.8 mg/dL (8.5-10.1)
[2024-04-14 11:57] LABS: ALBUMIN 3.6 g/dl (3.4-5.0); BLOOD UREA NITROGEN 11.4 mg/dL (7-18); MAGNESIUM 2.4 mg/dL (1.8-2.4)
[2024-04-14 12:00] LABS: CREATININE 1.4 mg/dL (0.55-1.3); PHOSPHOROUS 1.7 mg/dL (2.5-4.9)
[2024-04-14 12:01] LABS: BILIRUBIN,TOTAL 0.4 mg/dL (0.2-1); TOT PROT 6.8 g/dl (6.4-8.2)
[2024-04-14] MEDS ORDERED: guaiFENesin 200 MG/10 ML 10 ML UNIT-DOSE CUPS PO ONE (13:58)
[2024-04-14] MEDS ORDERED: NAPH,MB-DB/K PH,MBDB POWDER PACKET ONE (14:00)
[2024-04-14] MEDS ORDERED: guaiFENesin/D-METHORPHAN HB 10 ML UNIT-DOSE CUPS ONE (14:01)
[2024-04-14] MEDS: guaiFENesin/D-METHORPHAN HB 10 ML UNIT-DOSE CUPS PO ONE (14:04)
[2024-04-14] MEDS: NAPH,MB-DB/K PH,MBDB POWDER PACKET PO ONE (14:04)
[2024-04-14 14:09] VITALS: BP 138/76; PULSE 64; RESP 20; TEMP 98.8
== END 2024-04-14 14:10 | disposition home or self-care (01) ==
LOC: JER 09:29
PROC: 3E033NZ Introduction of Analgesics, Hypnotics, Sedatives into Peripheral Vein, Percutaneous Approach (ICD-10-PCS; principal; 2024-04-14)
DX: R05.9 Cough, unspecified (principal); R53.83 Other fatigue; R07.2 Precordial pain; J06.9 Acute upper respiratory infection, unspecified; R09.81 Nasal congestion; R50.9 Fever, unspecified; Z20.822 Contact with and (suspected) exposure to COVID-19
CPT/HCPCS: 0241U-QW; 36415; 71046-TC-FY; 80053; 83735; 84100; 84484; 85025; 85610; 85730; 93005; 93010; 99285-25; J0131

== ENCOUNTER 2024-08-21 16:46 | Emergency (ER) | payer OTHER ==
[2024-08-21 16:50] VITALS: BP 139/83; PULSE 65; RESP 18; TEMP 98.4; BMI 29.7
[2024-08-21] MEDS ORDERED: DEXAMETHASONE SOD PHOSPHATE 10 MG/1 ML VIAL ONE (17:23)
[2024-08-21] MEDS: DEXAMETHASONE SOD PHOSPHATE 10 MG/1 ML VIAL PO ONE (17:27)
[2024-08-21 18:02] LABS: THROAT:GRP A STREP NOT DETECTED (NOTDETECTED)
[2024-08-21] MEDS ORDERED: LIDOCAINE VISCOUS 2% ORAL/TOP 15 ML UNIT-DOSE CUP ONE (19:27)
[2024-08-21] MEDS ORDERED: ACETAMINOPHEN 325 MG TABLET (FP) ONE (19:28)
[2024-08-21] MEDS ORDERED: MAG HYDROX/AL HYDROX/SIMETH 30 ML UNIT-DOSE CUP ONE (19:28)
[2024-08-21] MEDS: ACETAMINOPHEN 325 MG TABLET (FP) PO ONE (19:33)
[2024-08-21] MEDS: LIDOCAINE VISCOUS 2% ORAL/TOP 15 ML UNIT-DOSE CUP MM ONE (19:33)
[2024-08-21] MEDS: MAG HYDROX/AL HYDROX/SIMETH 30 ML UNIT-DOSE CUP PO ONE (19:34)
== END 2024-08-21 19:36 | disposition home or self-care (01) ==
LOC: JERFT 16:46
DX: R21 Rash and other nonspecific skin eruption (principal); B08.4 Enteroviral vesicular stomatitis with exanthem; J02.9 Acute pharyngitis, unspecified; R53.83 Other fatigue; R51.9 Headache, unspecified; Z20.822 Contact with and (suspected) exposure to COVID-19
CPT/HCPCS: 0241U-QW; 87651; 99283-25; J1100